=== PATIENT | female | born 2000 | race African-American/Black ===

== ENCOUNTER 2019-07-26 18:48 | Emergency (ER) | payer MEDICAID ==
[~2019-07-26] VITALS: Ht 165.1 cm; Wt 70.0 kg
[2019-07-26 18:51] VITALS: BP 118/74
== END 2019-07-26 19:37 | disposition left against medical advice (07) ==
LOC: ER 19:27
DX: N93.8 Other specified abnormal uterine and vaginal bleeding (principal); Z53.21 Procedure and treatment not carried out due to patient leaving prior to being seen by health care provider